=== PATIENT | female | born 1975 | race Caucasian/White ===

== ENCOUNTER 2016-08-23 20:24 | Emergency (ER) | payer BC ==
[~2016-08-23] VITALS: Wt 99.3 kg
[~2016-08-23 20:24] MED LIST: CEFADROXIL500 M1 PO; DICLOFENAC SOD75 MG; FLEXERIL10 MG PO; LEVOFLOXACIN500 MG PO; MEDROL DOSEPAK4 MG PO; MOTRIN800 MG PO; Miralax Powder255 GM PO; PREVACID15 MG PO; PROCTOFOAM-HC 110 G1 PO; URIBEL CAPSULE1 EACH PO; ZOFRAN4 MG PO
[2016-08-23] MEDS ORDERED: ADIPEX-P37.5 MG PO (20:41)
[2016-08-23] MEDS ORDERED: ZANTAC 150150 MG PO (20:41)
[2016-08-23] MEDS ORDERED: NEXIUM40 MG PO (20:41)
[2016-08-23] MEDS ORDERED: ZITHROMAX250 MG PO (21:43)
[2016-08-23] MEDS ORDERED: PSEUDOEPHEDRINE60 M2 PO (21:43)
[2016-08-23] MEDS ORDERED: ROBITUSSIN AC 110 ML PO (21:43)
== END 2016-08-23 21:52 | disposition home or self-care (01) ==
LOC: ED 20:24
DX: J01.00 Acute maxillary sinusitis, unspecified (principal); H65.01 Acute serous otitis media, right ear; J40 Bronchitis, not specified as acute or chronic; Z90.49 Acquired absence of other specified parts of digestive tract; Z98.890 Other specified postprocedural states; Z79.899 Other long term (current) drug therapy; Z88.2 Allergy status to sulfonamides

== ENCOUNTER 2017-10-24 20:21 | Emergency (ER) | payer BC ==
[~2017-10-24] VITALS: Ht 162.5 cm; Wt 98.4 kg
[~2017-10-24 20:21] MED LIST changes: +ADIPEX-P37.5 MG PO; +NEXIUM40 MG PO; +PSEUDOEPHEDRINE60 M2 PO; +ROBITUSSIN AC 110 ML PO; +ZANTAC 150150 MG PO; +ZITHROMAX250 MG PO
== END 2017-10-24 20:34 | disposition home or self-care (01) ==
LOC: ED 20:21
DX: S61.214A Laceration without foreign body of right ring finger without damage to nail, initial encounter (principal); Z88.2 Allergy status to sulfonamides; W22.8XXA Striking against or struck by other objects, initial encounter; Y93.89 Activity, other specified; Y92.89 Other specified places as the place of occurrence of the external cause; Y99.8 Other external cause status

== ENCOUNTER → 2019-12-26 | Outpatient (CLI) | payer BC | END | disposition home or self-care (01) | LOC: US 09:30 | DX: N93.8 Other specified abnormal uterine and vaginal bleeding (principal); Z97.5 Presence of (intrauterine) contraceptive device ==

== ENCOUNTER → 2020-12-18 | Outpatient (CLI) | payer BC ==
[~2020-12-18] MED LIST changes: +AMITRIPTYLINE25 MG PO; +BARIATRIC MV-I1 EACH PO; +CALCIUM + D SO1 EACH PO; +HAIR-SKIN-NAIL1 EACH PO; +PERCOCET 5-3251 EACH PO
== END | disposition home or self-care (01) ==
LOC: LAB 14:01 → US 14:01
PROVIDERS: ATTEND Physician Assistant Medical
DX: R22.42 Localized swelling, mass and lump, left lower limb (principal); Z20.822 Contact with and (suspected) exposure to COVID-19

== ENCOUNTER → 2020-12-23 | Day surgery (SDC) | payer BC ==
[~2020-12-23] VITALS: Ht 162.5 cm; Wt 90.7 kg
[2020-12-23] VITALS (7 sets, daily range): BP systolic 108–125; BP diastolic 58–80
== END | disposition home or self-care (01) ==
LOC: SDC 12-18 13:59 → LAB 12-18 13:59 → SDC 12-18 14:00
PROVIDERS: ATTEND Obstetrics & Gynecology
DX: N93.9 Abnormal uterine and vaginal bleeding, unspecified (principal); K21.9 Gastro-esophageal reflux disease without esophagitis; M19.90 Unspecified osteoarthritis, unspecified site; Z88.2 Allergy status to sulfonamides; Z79.899 Other long term (current) drug therapy

== ENCOUNTER → 2020-12-25 | Outpatient (CLI) | payer BC | END | disposition home or self-care (01) | LOC: US 08:14 | PROVIDERS: ATTEND Internal Medicine Gastroenterology | DX: R94.5 Abnormal results of liver function studies (principal) ==